=== PATIENT | female | born 1980 | race Caucasian/White ===

== ENCOUNTER 2020-04-04 15:33 | Outpatient (CLI) | payer BC, SELFPAY ==
--- NOTE | ~2020-04-04 | CT_ITS ---
EXAMINATION: CT abdomen pelvis wo/w con DATE: 04/04/2020 17:20 INDICATION: Hematuria TECHNIQUE: Computed tomography (CT) of the abdomen and pelvis was performed without intravenous contr ast. CT of the abdomen and pelvis was then performed with a total of 130 mL Omnipaque 350 intravenous contrast using a double-bolus technique for simultaneous opacification of the renal parenchyma and r enal collecting system. The dose-length product (DLP) was 463.14 mGy-cm. Automated exposure control a nd iterative reconstruction technique were employed. COMPARISON: 04/10/2010 FINDINGS: The lung bases are clear. The heart size is normal. There is a 1.5 cm lesion in the right h epatic lobe with interrupted peripheral nodular enhancement, consistent with a hemangioma. A second 0 .6 cm lesion with similar features is seen in the liver dome. The spleen, pancreas, gallbladder, and adrenal glands are normal. There are at least seven nonobstructing stones in the left kidney, the lar gest of which measures 4 mm in the lower pole. There is a 5 mm nonobstructing stone of the right kidn ey lower pole. No stones are present in the ureters or bladder. There is no hydronephrosis or hydrour eter. No suspicious renal or urothelial lesion is identified. No pathologically enlarged abdominal or pelvic lymph nodes are identified. There is no free intraperitoneal gas or evidence of bowel obstruc tion. IMPRESSION: 1. Nonobstructing bilateral nephrolithiasis. Reviewed, dictated and finalized at location A. TESTER
== END 2020-04-04 15:34 | disposition home or self-care (01) ==
PROVIDERS: PCP Internal Medicine; Visit Provider Urology
DX: R31.0 Gross hematuria (principal); N20.0 Calculus of kidney
CPT/HCPCS: 74178; Q9967

== ENCOUNTER 2021-12-28 11:39 | Outpatient (CLI) | payer BC, SELFPAY ==
--- NOTE | ~2021-12-28 | MMUS_ITS ---
EXAMINATION: MM diagnostic yonny BI w arturo, US breast LT limited HISTORY: Palpable chest lump. TECHNIQUE: Additional 3-D tomosynthesis images of the breasts were performed and synthetic 2-D images were generated. CAD analysis was submitted and interpreted. High resolution Limited left breast ultr asound was performed. COMPARISON: 12/28/2021 BREAST PARENCHYMAL COMPOSITION: The breasts are extremely dense, which lowers the sensitivity of mamm ography. FINDINGS: MAMMOGRAPHIC FINDINGS: There are no suspicious masses, calcifications or architectural distortion in either breast to sugges t malignancy. ULTRASOUND: Limited left breast ultrasound: Normal heterogeneous echotexture in the left breast without evidence for mass. There are normal left axillary lymph nodes. IMPRESSION: 1. No evidence for malignancy in either breast. 2. Routine yearly screening mammogram and regular clinical breast examination are recommended. BI-RADS Category 1: Negative Reviewed, dictated and finalized at location A. IMPRESSION: 1. No evidence for malignancy in either breast. 2. Routine yearly screening mammogram and regular clinical breast examination a re recommended. BI-RADS Category 1: Negative
== END 2021-12-28 11:40 | disposition home or self-care (01) ==
LOC: ANHIMG 11:40
PROVIDERS: PCP Physician Assistant Medical; Visit Provider Physician Assistant Medical
DX: N63.20 Unspecified lump in the left breast, unspecified quadrant (principal); R92.2 Inconclusive mammogram
CPT/HCPCS: 76642; 77062; 77066; G0279

== ENCOUNTER 2023-07-18 10:29 | Outpatient (CLI) | payer BC, SELFPAY ==
--- NOTE | ~2023-07-18 | MM_ITS ---
EXAMINATION: MM screening yonny BI w arturo HISTORY: Screening mammogram TECHNIQUE: Craniocaudal and mediolateral oblique 3-D tomosynthesis images were obtained and synthetic 2-D images were generated. CAD analysis was submitted and interpreted. COMPARISON: 12/28/2021 diagnostic bilateral mammogram and limited left breast ultrasound examination BREAST PARENCHYMAL COMPOSITION: The breasts are extremely dense, which lowers the sensitivity of mamm ography. FINDINGS: There is no evidence of suspicious mass, calcification, or architectural distortion to sugg est malignancy in either breast. There has been no suspicious interval change. IMPRESSION: 1. No mammographic evidence of malignancy. 2. Recommend routine screening mammography in one year. BI-RADS Category 1: Negative Reviewed, dictated and finalized at location B.
== END 2023-07-18 10:30 ==
PROVIDERS: PCP Nurse Practitioner Obstetrics & Gynecology; Visit Provider Physician Assistant Medical
DX: Z12.31 Encounter for screening mammogram for malignant neoplasm of breast (principal)
CPT/HCPCS: 77063; 77067

== ENCOUNTER 2024-07-16 01:33 | Day surgery (SDC) | payer BC, SELFPAY ==
[2024-07-02 13:57] VITALS: BMI 18.3
--- OUTSIDE RECORDS SUMMARY | 2024-07-16 01:36 | XMS_ITS | Referral Summary ---
Author Organization [address] Address [address] [place] [id number] Care Team Providers Care Transportation Dispatcher Name Role Phone Yoselyn Hernandez Primary Care Provider [phone] Allergies Active Allergy Reactions Criticality Noted Date Comments Ciprofloxacin Muscle pain Medium 03/30/2023 Tendon pain Pseudoephedrine Other (See comments) Low 02/23/2017 Medications Ubrelvy 100 mg tablet TAKE 1 TABLET BY MOUTH AND REPEAT AGAIN NEEDED WITHIN 1-2 HOURS 02/14/2023 Active Active Problems No known active problems Social History Tobacco Use Types Packs/Day Years Used Date Smoking Tobacco: Never Comments Unknown Sex and Gender Information Value Date Recorded Sex Assigned at Not on file Legal Sex Female 3:07 PM COPY CENTER OPERATOR Gender Identity Not on file Sexual Orientation Not on file Last Filed Vital Signs Vital Sign Reading Time Taken Comments Blood Pressure 110/62 03/30/2023 7:35 PM COPY CENTER OPERATOR Pulse 63 03/30/2023 7:35 PM COPY CENTER OPERATOR Temperature 36.7 C (98 F) 03/30/2023 7:35 PM COPY CENTER OPERATOR Respiratory Rate 16 03/30/2023 7:35 PM COPY CENTER OPERATOR Oxygen Saturation 99% 03/30/2023 7:35 PM COPY CENTER OPERATOR Inhaled Oxygen Concentration - - Weight 45.4 kg (100 lb) 03/30/2023 7:35 PM COPY CENTER OPERATOR Height 157.5 cm (5' 2 ) 04/20/2017 1:35 PM COPY CENTER OPERATOR Body Mass Index 18.29 04/20/2017 1:35 PM COPY CENTER OPERATOR Plan of Treatment Not on file Insurance [employer] O[employer] Care Teams Transportation Dispatcher Relationship Specialty Start Date End Date Yoselyn Hernandez PA [facility] [place] [address] PCP - General 03/09/17
--- OUTSIDE RECORDS SUMMARY | 2024-07-16 01:37 | XMS_ITS | Clinical Summary ---
Author Organization [facility] Address [address] [place] [id number] Care Team Providers Care Concrete Pump Operator Name Role Phone Unavailable Primary Care Provider Unavailabl e Social History Tobacco Use Types Packs/Day Years Used Date Smoking Tobacco: Never Assessed Comments Unknown Sex and Gender Information Value Date Recorded Sex Assigned at Not on file Legal Sex Female 7:25 PM CDT Gender Identity Not on file Sexual Orientation Not on file Plan of Treatment Health Maintenance Due Date Last Done Comments Cervical Cancer Screening Pa p Smear (Age 30 to 64) Every 3 Years 1980 Annual Physical 1983 Hepatitis C 1998 DTaP, Tdap and Td Vaccines ( 1 - Tdap) 1999 Hepatitis B Vaccines (1 of 3 - 19+ 3-dose series) 1999 Cervical Cancer Screening Pa p with HPV Testing (Age 30 to 64) Every 5 Years 2010 Cervical Cancer Screening with HPV 2010 Mammogram Screening 2020 COVID-19 Vaccine (2023-2 5 season) 2023 HPV Vaccines Aged Out No longer eligi ble based on patient's age to complete this topic Meningococcal B Vaccine Aged Out No l onger eligible based on patient's age to complete this topic Meningococcal Vaccine Aged Out No vera conor eligible based on patient's age to complete this topic Pneumococcal Vaccine: Pediat rics (0 to 5 Years) and At-Risk Patients (6 to 49 Years) Aged Out No longer eligible b ased on patient's age to complete this topic RSV Immunizations Under 20 Months Aged Out No longer eligible based on patient's age to complete this topic
--- OUTSIDE RECORDS SUMMARY | 2024-07-16 01:37 | XMS_ITS | Clinical Summary ---
Author Organization [address] Address [address] [place] [id number] Care Team Providers Care Thermometer Maker Name Role Phone Yoselyn Hernandez Primary Care Provider [phone] Allergies Active Allergy Reactions Criticality Noted Date Comments Ciprofloxacin Muscle pain Medium 03/30/2023 Tendon pain Pseudoephedrine Other (See comments) Low 02/23/2017 Medications Ubrelvy 100 mg tablet TAKE 1 TABLET BY MOUTH AND REPEAT AGAIN NEEDED WITHIN 1-2 HOURS 02/14/2023 Active Active Problems No known active problems Family History Medical History Relation Name Comments Cancer Mother Family history of malignant neoplasm - (Added by TW Conv) Relation Name Status Comments Mother Social History Tobacco Use Types Packs/Day Years Used Date Smoking Tobacco: Never Comments Unknown Sex and Gender Information Value Date Recorded Sex Assigned at Not on file Legal Sex Female 3:07 PM POSTAL SUPERINTENDENT Gender Identity Not on file Sexual Orientation Not on file Obstetrics History Last Filed Vital Signs Vital Sign Reading Time Taken Comments Blood Pressure 110/62 03/30/2023 7:35 PM POSTAL SUPERINTENDENT Pulse 63 03/30/2023 7:35 PM POSTAL SUPERINTENDENT Temperature 36.7 C (98 F) 03/30/2023 7:35 PM POSTAL SUPERINTENDENT Respiratory Rate 16 03/30/2023 7:35 PM POSTAL SUPERINTENDENT Oxygen Saturation 99% 03/30/2023 7:35 PM POSTAL SUPERINTENDENT Inhaled Oxygen Concentration - - Weight 45.4 kg (100 lb) 03/30/2023 7:35 PM POSTAL SUPERINTENDENT Height 157.5 cm (5' 2 ) 04/20/2017 1:35 PM POSTAL SUPERINTENDENT Body Mass Index 18.29 04/20/2017 1:35 PM POSTAL SUPERINTENDENT Plan of Treatment Health Maintenance Due Date Last Done Comments Breast Cancer Screening-Mammogram 1980 Cervical Cancer Screening 1980 Depression Screening 1980 Hepatitis C Screening 1980 Varicella Vaccines (1 of 2 - 13+ 2-dose series) 1993 Hepatitis B Screening 1998 Regular Well Visit/Exam 18-64 1998 DTaP/Tdap/Td Vaccine (2 - Td or Tdap) 10/09/2023 10/08/2013 Covid-19 Vaccine (3 season) 2023 02/19/2021, 05/20/2020 Influenza Vaccine (#1) 2023 2, 01/22/2020, 01/12/2019, Additional history exists HPV Vaccines Aged Out No longer eligi ble based on patient's age to complete this topic Pneumococcal vaccine <65 Aged Out No longer eligible based on patient's age to complete this topic Insurance [email or web address] OOS Member Subscriber Plan / Payer (Ef fective 2020-Present) Name:Park Meier Relation to Subscriber:Spouse Name:WHITETELVINA Felix Date of :1977 (Home) Address: [address] [place] [id number] Payer ID:[id number] (NAIC) Type:BC [employer] Address: [facility] [id number] [place] [id number] Care Teams Thermometer Maker Relationship Specialty Start Date End Date Yoselyn Hernandez PA [facility] [place], [place] [id number] PCP - General 03/09/17
--- OUTSIDE RECORDS SUMMARY | 2024-07-16 01:37 | XMS_ITS | Data Portability ---
Author Organization [facility] [place] Address [address] [place] [address] Care Team Providers Care Cashier Name Role Phone SIDHU, MIRNA Primary Care Provider [phone] Assessment Encounter Date Assessment Date Assessment LastModified by Organization Details LastModified Time 08/05/2020 08/05/2020 Annual gynecological exam performed. Patient will come back in a year unless there are new symptoms. Not available 08/05/2020 13:52:37 11/20/2021 11/20/2021 Annual gynecological exam performed. Patient will come back in a year unless there are new symptoms. [email or web address] Not available 11/20/2021 11:07:30 01/06/2023 01/06/2023 Annual gynecological exam performed. Patient will come back in a year unless there are new symptoms. [email or web address] Not available 01/06/2023 12:32:29 01/30/2024 01/30/2024 Annual gynecological exam performed. Patient will come back in a year unless there are new symptoms. [email or web address] Not available 01/25/2024 11:05:25 Plan of Treatment Reminders Order Date Submit Date Provider Last Modified By Organization Details Last Modified Time Details Appointments None recorded . Lab CBC w/ auto diff 2023 [facility] (Lab), [address], [place], [address], 09:30:52 CMP, serum or plasma 2023 024 [facility] (Lab), [address] [place], [address], 4 09:30:50 lipid panel, blood 2023 024 [facility] (Lab), [address], [place], [address], 4 09:30:51 TSH, serum or plasma 2023 024 [facility] (Lab), [address], [place], [address], 4 09:30:51 HbA1c (hemoglo bin A1c), blood 2023 024 [facility] (Lab), [address], [place], [address], 4 09:30:52 25-hydro xyvitami n D2 + 25-hydro xyvitami n D3, QN, serum or plasma 2023 024 [facility] (Lab), [address], [place], [address], 4 09:30:51 vitamin D, 25-hydro xy, total, serum 2022 023 [facility] (Lab), [address] [place], [address], 3 04:02:46 lipid panel, blood 2022 023 [facility] (Lab), [address], [place], [address], 3 04:02:44 CMP, serum or plasma 2022 023 [facility] (Lab), [address], [place], [address], 3 04:02:45 HbA1c (hemoglo bin A1c), blood 2022 023 [facility] (Lab), [address], [place], [address], 3 04:02:44 CBC w/ auto diff 2022 023 [facility] (Lab), [address], [place], [address], 3 04:02:43 TSH, serum or plasma 2022 023 [facility] (Lab), [address], [place], [address], 3 04:02:45 Referral pelvic floor therapy referral 2020 021 [facility], [address], [place], [address], 1 09:15:24 Procedures None recorded . Surgeries None recorded . Imaging MAMMO, screenin g, digital, bilatera l 2023 024 [facility], [address], [address], [place], [address], 5 04:01:54 MAMMO, screenin g, bilatera l [address] [facility], [address], [address], [place], [address], 4 16:16:07 MAMMO, screenin g, digital, bilatera l 2020 021 [facility], [address], [place], [address], 2 16:33:46 Medication Orders Pyridium 100 mg tablet 2020 021 [id number], [address], [place], [place], [id number], 11:11:04 Patient TargetsNo targets recorded. Patient InstructionsNo instructions recorded. Reason for Referral Pelvic Floor Therapy Referra l for Painful urinary bladder spasm Referring Physician: Jessika Herbert, PLANT ACCOUNTANT, Encounter Date: 08/05/2020 Results Created Date Observation Date Name Description Value Unit Range Abnormal Flag Note LastModifiedBy Organization Detail LastModifiedTime 01/07/2001/06/2023 CBC W/DIF F WBC 7.4 10'3/ uL 3.6-10 .2 Not Available [facility] (Lab) [address] [facility], [place], [address], 01/07/2023 04:02:42 01/07/2001/06/2023 CBC W/DIF F RBC 4.28 10'6/ uL (based on docume nted legal sex) 4.10-5 .30 Not Available [facility] (Lab) [address], [place], [address], 01/07/2023 04:02:42 01/07/2001/06/2023 CBC W/DIF F HGB 13.5 g/dL (based on docume nted legal sex) 11.9-1 5.8 Not Available [facility] (Lab) [address], [place], [address], 01/07/2023 04:02:42 01/07/2001/06/2023 CBC W/DIF F HCT 42.7 % (based on docume nted legal sex) 37.4-4 8.3 Not Available [facility] (Lab) [address], [place], [address], 01/07/2023 04:02:42 01/07/2001/06/2023 CBC W/DIF F MCV 99.8 fL 82.0-9 9.0 high Not Available [facility] (Lab) [address] , [place], [address], 01/07/2023 04:02:42 01/07/20 23 01/06/2023 CBC W/DIF F MCH 31.5 pg 27.0-3 3.0 Not Available [facility] (Lab) [address], [place], [address], 01/07/2023 04:02:42 01/07/20 23 01/06/2023 CBC W/DIF F MCHC 31.6 g/dL 32.0-3 6.0 low Not Available [facility] (Lab) [address], [place], [address], 01/07/2023 04:02:42 01/07/2001/06/2023 CBC W/DIF F RDW 12.6 % 11.0-1 5.0 Not Available [facility] (Lab) [address], [place], [address], 01/07/2023 04:02:42 01/07/2001/06/2023 CBC W/DIF F plt 288 10'3/ uL 150-45 0 Not Available [facility] (Lab) [address], [place], [address], 01/07/2023 04:02:42 01/07/20 23 01/06/2023 CBC W/DIF F MPV 10.5 fL 9.8-12 .7 Not Available [facility] (Lab) [address], [place], [address], 01/07/2023 04:02:42 01/07/2001/06/2023 CBC W/DIF F NRBC's 0.0 % 0 Not Available [facility] (Lab) [address], [place], [address], 01/07/2023 04:02:42 01/07/20 23 01/06/2023 CBC W/DIF F absolute NRBCs 0.0 10'3/ uL 0 Not Available [facility] (Lab) [address], [place], [address], 01/07/2023 04:02:42 01/07/20 23 01/06/2023 CBC W/DIF F neutrophils 59.3 % 37.0-7 2.0 Not Available [facility] (Lab) [address] [facility], [place], [address], 01/07/2023 04:02:42 01/07/2001/06/2023 CBC W/DIF F lymphocytes 31.5 % 16.0-4 8.0 Not Available [facility] (Lab) [address], [place], [address], 01/07/2023 04:02:42 01/07/2001/06/2023 CBC W/DIF F monocytes 7.2 % 4.0-14 .0 Not Available [facility] (Lab) [address], [place], [address], 01/07/2023 04:02:42 01/07/2001/06/2023 CBC W/DIF F eosinophils 1.2 % 0.0-9. 0 Not Available [facility] (Lab) [address], [place], [address], 01/07/2023 04:02:42 01/07/20 23 01/06/2023 CBC W/DIF F basophils 0.7 % 0.0-2. 0 Not Available [facility] (Lab) [address], [place], [address], 01/07/2023 04:02:42 01/07/2001/06/2023 CBC W/DIF F immature granulocytes 0.1 % no define d refere nce range Not Available [facility] (Lab) [address] [place], [address], 01/07/2023 04:02:42 01/07/20 23 01/06/2023 CBC W/DIF F absolute neutrophils 4.4 10'3/ uL 1.1-6. 0 Not Available [facility] (Lab) [address] [facility], [place], [address], 01/07/2023 04:02:42 01/07/20 23 01/06/2023 CBC W/DIF F absolute lymphocytes 2.3 10'3/ uL 0.7-3. 4 Not Available [facility] (Lab) [address], [place], [address], 01/07/2023 04:02:42 01/07/20 23 01/06/2023 CBC W/DIF F absolute monocytes 0.5 10'3/ uL 0.3-1. 0 Not Available [facility] (Lab) [address], [place], [address], 01/07/2023 04:02:42 01/07/2001/06/2023 CBC W/DIF F absolute eosinophils 0.1 10'3/ uL 0.0-0. 6 Not Available [facility] (Lab) [address], [place], [address], 01/07/2023 04:02:42 01/07/2001/06/2023 CBC W/DIF F absolute basophils 0.1 10'3/ uL 0.0-0. 1 Not Available [facility] (Lab) [address], [place], [address], 01/07/2023 04:02:42 01/07/20 23 01/06/2023 CBC W/DIF F absolute immature granulocytes 0.0 10'3/ uL 0.00-0 .10 01/07 1:42 AM: P indic ates parti al resul ts on a panel have been relea sed. Addit ional resul ts will follo w. 01/07 1:42 AM: This resul t has been final verif ied. No addit ional or porras ed resul ts are expec saúl. Not Available [facility] (Lab) [address], [place], [address], 01/07/2023 04:02:42 01/07/2001/06/2023 HEMOG LOBIN A1C hemoglobin A1C 5.3 % 0-5.6 The Ameri can Diabe jenn Assoc iatio n recom mends that a prima ry goal of thera py mckenna young be a HBA1C of < 7% and that physi cians shoul d reeva luate the treat ment regim en in patie nts with HBA1C value s consi stent ly > 8%. <5.7% Gabriela l 5.7 - 6.4% Incre ased risk for diabe jenn >=6.5 % Diagn ostic of diabe jenn <7.0% Goal of thera py >8.0% Actio n sugge sted Not Available [facility] (Lab) [address], [place], [address], 01/07/2023 04:02:44 01/07/2001/06/2023 LIPID PANEL ,AMA (LDL- CALC) total cholesterol 192 mg/dL 0-199 Not Available [facility] (Lab) [address] [place], [address], 01/07/2023 04:02:44 01/07/2001/06/2023 LIPID PANEL ,AMA (LDL- CALC) triglyceride s 101 mg/dL 0.00-1 50.00 NCEP Refer ence Value s for Trigl yceri kita: Gabriela l: <150 mg/dL Borde rline High: 150 - 199 mg/dL High: 200 - 499 mg/dL Very High: >/= 500 mg/dL Not Available [facility] (Lab) [address], [place], [address], 01/07/2023 04:02:44 01/07/2001/06/2023 LIPID PANEL ,AMA (LDL- CALC) HDL cholesterol 65 mg/dL >40 Not Available [facility] (Lab) [address] [place], [address], 01/07/2023 04:02:44 01/07/20 23 01/06/2023 LIPID PANEL ,AMA (LDL- CALC) LDL cholesterol 108 mg/dL 0-99 high Cutof f value s recom richard d by the Natio nal Malu stero l Educa tion Progr am: SAMY ABLE: Malu stero l <200 mg/dL LDL <100 mg/dL BORDE RLINE : Malu stero l 200-2 39 mg/dL LDL 101-1 59 mg/dL HIGHE R RISK: Malu stero l >240 mg/dL LDL >160 mg/dL , HDL <40 mg/dL Not Available [facility] (Lab) [address], [place], [address], 01/07/2023 04:02:44 01/07/2001/06/2023 LIPID PANEL ,AMA (LDL- CALC) non-HDL cholesterol 127 mg/dL no refere nce range A reaso nable goal for non-H DL malu stero l is one that is 30 mg/dL highe r than the LDL malu stero l goal. Not Available [facility] (Lab) [address], [place], [address], 01/07/2023 04:02:44 01/07/2001/06/2023 LIPID PANEL ,AMA (LDL- CALC) chol/HDL ratio 3.0 . 0.0-5. 0 On July 06, 2022, [facility] [place] labor atori geo porras ed the equat ion for calcu latin g estim ated low-d ensit y lipop rotei n-cho leste rol (LDL- C) from the Dany glez equat ion to the Vesta wilde/Debi mitchell equat ion. This new equat ion is only valid for lipid panel s with trigl yceri kita < 400 mg/dL . Studi es have demon strat ed that this new equat ion will impro ve the accur acy of LDL-C , espec ially in scena dubon when LDL-C ronda ntrat ions are relat ively low (< 100 mg/dL ), trigl yceri kita are eleva saúl, or patie nt is non-f astin g. Refer ences : - Oleg Sin, Howard Angel , Dhiraj bee, Marito Solano, Marito haynes, Mirna ellis , and Rey Tucker . 2013. Comp ariso n of a Novel Metho d vs the Fried newton Equat ion for Estim ating Low-D ensit y Lipop rotei n Malu stero l Level s from the Stand asad Lipid Profevin samaniego. THOMAS: The Journ al of the Ameri can Medic al Assoc iatio n 310 (19): 2060- . - Emani lee V, Cynthia J, Fátima lee A, Laura M, Kenneth espinoza R, Ward lee E, Kimberley ellis RS, Garrett SR, Vesta wilde SS. Fast ing Versu s Nonfa sting and Low-D ensit y Lipop rotei n Malu stero l Accur acy. Circu latio n. 2017Mar 15;137 (1):1 0-19. Not Available [facility] (Lab) [address] [place], [address], 01/07/2023 04:02:44 01/07/20 23 01/06/2023 CMP(C OMPRE HENSI VE METAB OLIC PANEL ) sodium 136 mmol/ L 133-14 6 Not Available [facility] (Lab) [address] [place], [address], 01/07/2023 04:02:45 01/07/20 23 01/06/2023 CMP(C OMPRE HENSI VE METAB OLIC PANEL ) potassium 3.8 mmol/ L 3.5-5. 1 Not Available [facility] (Lab) [address] [place], [address], 01/07/2023 04:02:45 01/07/20 23 01/06/2023 CMP(C OMPRE HENSI VE METAB OLIC PANEL ) chloride 101 mmol/ L 98-107 Not Available [facility] (Lab) [address] [place], [address], 01/07/2023 04:02:45 01/07/20 23 01/06/2023 CMP(C OMPRE HENSI VE METAB OLIC PANEL ) carbon dioxide 28 mmol/ L 21-31 Not Available [facility] (Lab) [address], [place], [address], 01/07/2023 04:02:45 01/07/20 23 01/06/2023 CMP(C OMPRE HENSI VE METAB OLIC PANEL ) anion gap 7 mmol/ L 4-13 Not Available [facility] (Lab) [address], [place], [address], 01/07/2023 04:02:45 01/07/20 23 01/06/2023 CMP(C OMPRE HENSI VE METAB OLIC PANEL ) blood urea nitrogen 16 mg/dL 7-25 Not Available [facility] (Lab) [address], [place], [address], 01/07/2023 04:02:45 01/07/2001/06/2023 CMP(C OMPRE HENSI VE METAB OLIC PANEL ) creatinine 0.87 mg/dL 0.60-1 .30 Not Available [facility] (Lab) [address], [place], [address], 01/07/2023 04:02:45 01/07/20 23 01/06/2023 CMP(C OMPRE HENSI VE METAB OLIC PANEL ) egfrcr (CKD-epi 2020) 85 mL/mi n/1.7 3_m2 >=60 Not Available [facility] (Lab) [address], [place], [address], 01/07/2023 04:02:45 01/07/20 23 01/06/2023 CMP(C OMPRE HENSI VE METAB OLIC PANEL ) calcium 9.3 mg/dL 8.3-10 .5 Not Available [facility] (Lab) [address], [place], [address], 01/07/2023 04:02:45 01/07/20 23 01/06/2023 CMP(C OMPRE HENSI VE METAB OLIC PANEL ) glucose 75 mg/dL 70-100 Not Available [facility] (Lab) [address], [place], [address], 01/07/2023 04:02:45 01/07/2001/06/2023 CMP(C OMPRE HENSI VE METAB OLIC PANEL ) protein, total 7.1 g/dL 6.4-8. 3 Not Available [facility] (Lab) [address], [place], [address], 01/07/2023 04:02:45 01/07/2001/06/2023 CMP(C OMPRE HENSI VE METAB OLIC PANEL ) albumin 4.3 g/dL 3.5-5. 0 Not Available [facility] (Lab) [address], [place], [address], 01/07/2023 04:02:45 01/07/2001/06/2023 CMP(C OMPRE HENSI VE METAB OLIC PANEL ) ALT 7 units /L 9-43 low Not Available [facility] (Lab) [address], [place], [address], 01/07/2023 04:02:45 01/07/2001/06/2023 CMP(C OMPRE HENSI VE METAB OLIC PANEL ) alkaline phosphatase 31 units /L 34-104 low Not Available [facility] (Lab) [address], [place], [address], 01/07/2023 04:02:45 01/07/2001/06/2023 CMP(C OMPRE HENSI VE METAB OLIC PANEL ) AST 13 units /L 13-39 Not Available [facility] (Lab) [address], [place], [address], 01/07/2023 04:02:45 01/07/2001/06/2023 CMP(C OMPRE HENSI VE METAB OLIC PANEL ) bilirubin, total 1.1 mg/dL 0.2-1. 2 Not Available [facility] (Lab) [address], [place], [address], 01/07/2023 04:02:45 01/07/20 23 01/06/2023 TSH, REFLE X FREE T4 TSH 1.47 uIU/m L 0.30-5 .33 Not Available [facility] (Lab) [address], [place], [address], 01/07/2023 04:02:45 01/07/20 23 01/06/2023 VITAM IN D, 25-OH (TOTA L D2/D3 ) vitamin D, 25-hydroxy, total 24.7 NG/mL 30.0-1 00.0 low Sug[address]ive of Defic iency : <20 ng/mL Sugge stive of Insuf ficie ncy: 20-29 ng/mL Sugge stive of Suffi cienc y: 30-10 0 ng/mL Sugge stive of Toxic ity: >150 ng/mL Not Available [facility] (Lab) [address], [place], [address], 01/07/2023 04:02:46 01/07/20 23 01/06/2023 IMAGE GUIDE D PAP AND HPV REGAR DLESS image guided Pap, HPV regardless of Pap result SEE RESULT S BELOW CASE REPOR T: Cytol ogy Gynec ologi pao Repor t Case: [id number] Autho jazmin g Provi marc: Cruz Olmedo Colle cted: 01/06 1535 FILLER PICKER Order ing Locat ion: [place] [facility] Recei viktor: 01/07 0322 First Scree n: Rupinder Tucker, CT Rescr een: Nicole Randall , CT Speci men: Scree tracee Pap - Image d, Cervi x STATE MENT OF ADEQU ACY: Satis facto ry for evalu ation Trans forma tion zone compo nent prese nt FINAL DIAGN OSIS: Negat lashay for Intra epith elial Lesio n or Adrián bolton (NIL) . Elect meliza estes michelle d by Nicole Randall , CT on 01/11 at 5:03 PM ----- ----- ----- ----- ----- ----- ----- ----- ----- ----- ----- ----- ----- ----- ----- ----- ----- ---- HPV RESUL TS: HPV mRNA E6/E7 : No HPV mRNA Detec saúl NOTE: This high risk HPV mRNA assay detec ts fourt een high- risk HPV types (16, 18, 31, 33, 35, 39, 45, 51, 52, 56, 58, 59, 66, 68) witho ut diffe renti ation . COMME NT: This speci men was revie wed by a Cytot echno logis t and/o r Patho logis t (as indic ated in this repor t) after evalu ation using the Thinp rep Imagi ng Syste m. CLINI PAO INFOR MATIO N: Menst rual Statu s: LMP (if appli cable ): Clini pao Histo ry/Pr eviou s Pap: Type of Neopl eva (if appli cable ): Signi fican t Clini pao Findi ngs: Other Histo ry: Hormo pamela (if appli cable ): PAP EDUCA ZEYNEP L NOTE: The Pap Test is a scree tracee test with an inher ent false negat lashay rate. Liqui d-bas ed sampl ing may decre ase, but will not elimi adilene, false negat lashay resul ts. A negat lashay resul t does not precl ude the prese nce and/o r devel opmen t of disea se, since the prese nce of abnor mal cells in the sampl e depen ds on the locat ion of the lesio n and sampl ing techn ique. Monisha nued regul ar scree tracee is the best metho d of cance r preve ntion . If repor saúl cytol ogic findi ng do not corre late with physi pao and/o r histo rical findi ngs, fur er inves tigat ion is recom richard d, as clini francisco warra nted. Not Available [facility] (Lab) [address], [place], [address], 01/11/2023 18:07:07 03/25/19 24 03/25/2023 VITAM IN D, 25-OH (TOTA L D2/D3 ) vitamin D, 25-hydroxy, total 58.3 NG/mL 30.0-1 00.[address] of Defic iency : <20 ng/mL Sugge stive of Insuf ficie ncy: 20-29 ng/mL Sugge stive of Suffi cienc y: 30-10 0 ng/mL Sugge stive of Toxic ity: >150 ng/mL Not Available [facility] (Lab) [address], [place], [address], 03/26/2023 07:03:47 07/15/19 24 07/15/2023 VITAM IN D, 25-OH (TOTA L D2/D3 ) vitamin D, 25-hydroxy, total 37.7 NG/mL 30.0-1 00.[address] of Defic iency : <20 ng/mL Sugge stive of Insuf ficie ncy: 20-29 ng/mL Sugge stive of Suffi cienc y: 30-10 0 ng/mL Sugge stive of Toxic ity: >150 ng/mL Not Available [facility] (Lab) [address], [place], [address], 07/16/2023 14:32:18 01/30/20 24 01/30/2024 CMP(C OMPRE HENSI VE METAB OLIC PANEL ) sodium 137 mmol/ L 133-14 6 Not Available [facility] (Lab) [address] [place], [address], 01/31/2024 09:30:50 01/30/20 24 01/30/2024 CMP(C OMPRE HENSI VE METAB OLIC PANEL ) potassium 4.4 mmol/ L 3.5-5. 1 Not Available [facility] (Lab) [address] [place], [address], 01/31/2024 09:30:50 01/30/20 24 01/30/2024 CMP(C OMPRE HENSI VE METAB OLIC PANEL ) chloride 100 mmol/ L 98-107 Not Available [facility] (Lab) [address], [place], [address], 01/31/2024 09:30:50 01/30/20 24 01/30/2024 CMP(C OMPRE HENSI VE METAB OLIC PANEL ) carbon dioxide 31 mmol/ L 21-31 Not Available [facility] (Lab) [address], [place], [address], 01/31/2024 09:30:50 01/30/20 24 01/30/2024 CMP(C OMPRE HENSI VE METAB OLIC PANEL ) anion gap 6 mmol/ L 4-13 Not Available [facility] (Lab) [address], [place], [address], 01/31/2024 09:30:50 01/30/20 24 01/30/2024 CMP(C OMPRE HENSI VE METAB OLIC PANEL ) blood urea nitrogen 11 mg/dL 7-25 Not Available [facility] (Lab) [address], [place], [address], 01/31/2024 09:30:50 01/30/20 24 01/30/2024 CMP(C OMPRE HENSI VE METAB OLIC PANEL ) creatinine 0.74 mg/dL 0.60-1 .30 Not Available [facility] (Lab) [address], [place], [address], 01/31/2024 09:30:50 01/30/20 24 01/30/2024 CMP(C OMPRE HENSI VE METAB OLIC PANEL ) egfrcr (CKD-epi 2020) >90 mL/mi n/1.7 3_m2 >=60 Not Available [facility] (Lab) [address], [place], [address], 01/31/2024 09:30:50 01/30/20 24 01/30/2024 CMP(C OMPRE HENSI VE METAB OLIC PANEL ) calcium 9.5 mg/dL 8.3-10 .5 Not Available [facility] (Lab) [address] [facility] [facility], [place], [address], 01/31/2024 09:30:50 01/30/20 24 01/30/2024 CMP(C OMPRE HENSI VE METAB OLIC PANEL ) glucose 83 mg/dL 70-100 Not Available [facility] (Lab) [address], [place], [address], 01/31/2024 09:30:50 01/30/20 24 01/30/2024 CMP(C OMPRE HENSI VE METAB OLIC PANEL ) protein, total 6.9 g/dL 6.4-8. 3 Not Available [facility] (Lab) [address], [place], [address], 01/31/2024 09:30:50 01/30/20 24 01/30/2024 CMP(C OMPRE HENSI VE METAB OLIC PANEL ) albumin 4.4 g/dL 3.5-5. 0 Not Available [facility] (Lab) [address], [place], [address], 01/31/2024 09:30:50 01/30/20 24 01/30/2024 CMP(C OMPRE HENSI VE METAB OLIC PANEL ) ALT 10 units /L 9-43 Not Available [facility] (Lab) [address] [facility] [address], [place], [address], 01/31/2024 09:30:50 01/30/20 24 01/30/2024 CMP(C OMPRE HENSI VE METAB OLIC PANEL ) alkaline phosphatase 36 units /L 34-104 Not Available [facility] (Lab) [address] [facility] [facility], [place], [address], 01/31/2024 09:30:50 01/30/20 24 01/30/2024 CMP(C OMPRE HENSI VE METAB OLIC PANEL ) AST 15 units /L 13-39 Not Available [facility] (Lab) [address] [place], [address], 01/31/2024 09:30:50 01/30/20 24 01/30/2024 CMP(C OMPRE HENSI VE METAB OLIC PANEL ) bilirubin, total 0.9 mg/dL 0.2-1. 2 Not Available [facility] (Lab) [address] [place], [address], 01/31/2024 09:30:50 01/30/20 24 01/30/2024 LIPID PANEL ,AMA (LDL- CALC) total cholesterol 195 mg/dL 0-199 Not Available [facility] (Lab) [address] [place], [address], 01/31/2024 09:30:51 01/30/20 24 01/30/2024 LIPID PANEL ,AMA (LDL- CALC) triglyceride s 129 mg/dL 0-150 NCEP Refer ence Value s for Trigl yceri kita: Gabriela l: <150 mg/dL Borde rline High: 150 - 199 mg/dL High: 200 - 499 mg/dL Very High: >/= 500 mg/dL Not Available [facility] (Lab) [address] [place], [address], 01/31/2024 09:30:51 01/30/20 24 01/30/2024 LIPID PANEL ,AMA (LDL- CALC) HDL cholesterol 66 mg/dL >40 Not Available [facility] (Lab) [address] [place], [address], 01/31/2024 09:30:51 01/30/20 24 01/30/2024 LIPID PANEL ,AMA (LDL- CALC) LDL cholesterol 106 mg/dL 0-99 high Cutof f value s recom richard d by the Natio n[facility] t[facility] Progr am: SAMY ABLE: Malu stero l <200 mg/dL LDL <100 mg/dL BORDE RLINE : Malu stero l 200-2 39 mg/dL LDL 101-1 59 mg/dL HIGHE R RISK: Malu stero l >240 mg/dL LDL >160 mg/dL , HDL <40 mg/dL Not Available [facility] (Lab) [address] [facility], [place], [address], 01/31/2024 09:30:51 01/30/20 24 01/30/2024 LIPID PANEL ,AMA (LDL- CALC) non-HDL cholesterol 129 mg/dL no refere nce range A reaso nable goal for non-H DL malu stero l is one that is 30 mg/dL highe r than the LDL malu stero l goal. Not Available [facility] (Lab) [address] [facility], [place], [address], 01/31/2024 09:30:51 01/30/20 24 01/30/2024 LIPID PANEL ,AMA (LDL- CALC) chol/HDL ratio 3.0 . 0.0-5. 0 On July 06, 2022, [facility] [place] labor atori es porras ed the equat ion for calcu latin g estim ated low-d ensit y lipop rotei n-cho leste rol (LDL- C) from the [employer] equat ion to the Vesta chani/Debi mitchell equat ion. This new equat ion is only valid for lipid panel s with trigl yceri kita < 400 mg/dL . Studi es have demon strat ed that this new equat ion will impro ve the accur acy of LDL-C , espec ially in scena [place] when LDL-C ronda ntrat ions are relat ively low (< 100 mg/dL ), trigl yceri kita are eleva saúl, or patie nt is non-f astin g. Refer ences : - Oleg Sin, Howard Angel , Dhiraj bee, Marito Solano, Marito haynes, [facility] , and Rey Tucker . 2013. Comp ariso n of a Novel Metho d vs the Fried newton Equat ion for Estim ating Low-D ensit y Lipop rotei n Malu stero l Level s from the Stand asad Lipid Shanti samaniego. THOMAS: The Journ al of the Ameri can Medic al Assoc iatio n 310 19): 2060- . - Emani lee V, Cynthia J, Fátima ar A, Laura M, Kenneth e R, Ward lee E, Kimberley ellis RS, Garrett SR, Vesta n SS. Fast ing Versu s Nonfa sting and Low-D ensit y Lipop rotei n Malu stero l Accur acy. Circu latio n. 2017Mar 15;137 (1):1 0-19. Not Available [facility] (Lab) [address] , [place], [address], 01/31/2024 09:30:51 01/30/20 24 01/30/2024 TSH, REFLE X FREE T4 TSH 1.17 uIU/m L 0.30-5 .33 Not Available [facility] (Lab) [address], [place], [address], 01/31/2024 09:30:51 01/30/20 24 01/30/2024 VITAM IN D, 25-OH (TOTA L D2/D3 ) vitamin D, 25-hydroxy, total 49.5 NG/mL 30.0-1 00.0 Sugge stive of Defic iency : <20 ng/mL Sugge stive of Insuf ficie ncy: 20-29 ng/mL Sugge stive of Suffi cienc y: 30-10 0 ng/mL Sugge stive of Toxic ity: >150 ng/mL Not Available [facility] (Lab) [address], [place], [address], 01/31/2024 09:30:51 01/30/20 24 01/30/2024 CBC W/DIF F WBC 5.2 10'3/ uL 3.5-10 .5 Not Available [facility] (Lab) [address], [place], [address], 01/31/2024 09:30:52 01/30/20 24 01/30/2024 CBC W/DIF F RBC 4.31 10'6/ uL (based on docume nted legal sex) 3.80-5 .20 Not Available [facility] (Lab) [address], [place], [address], 01/31/2024 09:30:52 01/30/20 24 01/30/2024 CBC W/DIF F HGB 13.6 g/dL (based on docume nted legal sex) 11.6-1 5.4 Not Available [facility] (Lab) [address], [place], [address], 01/31/2024 09:30:52 01/30/20 24 01/30/2024 CBC W/DIF F HCT 43.1 % (based on docume nted legal sex) 34.0-4 5.0 Not Available [facility] (Lab) [address], [place], [address], 01/31/2024 09:30:52 01/30/20 24 01/30/2024 CBC W/DIF F MCV 100.0 fL 80.0-9 9.0 high Not Available [facility] (Lab) [address] , [place], [address], 01/31/2024 09:30:52 01/30/20 24 01/30/2024 CBC W/DIF F MCH 31.6 pg 27.0-3 4.0 Not Available [facility] (Lab) [address], [place], [address], 01/31/2024 09:30:52 01/30/20 24 01/30/2024 CBC W/DIF F MCHC 31.6 g/dL 32.0-3 5.5 low Not Available [facility] (Lab) [address], [place], [address], 01/31/2024 09:30:52 01/30/20 24 01/30/2024 CBC W/DIF F RDW 12.4 % 11.0-1 5.0 Not Available [facility] (Lab) [address], [place], [address], 01/31/2024 09:30:52 01/30/20 24 01/30/2024 CBC W/DIF F plt 320 10'3/ uL 150-40 0 Not Available [facility] (Lab) [address], [place], [address], 01/31/2024 09:30:52 01/30/20 24 01/30/2024 CBC W/DIF F MPV 10.3 fL 8.8-12 .1 Not Available [facility] (Lab) [address], [place], [address], 01/31/2024 09:30:52 01/30/20 24 01/30/2024 CBC W/DIF F NRBC's 0.0 % 0.0 Not Available [facility] (Lab) [address], [place], [address], 01/31/2024 09:30:52 01/30/20 24 01/30/2024 CBC W/DIF F absolute NRBCs 0.0 10'3/ uL no refere nce range establ ished Not Available [facility] (Lab) [address], [place], [address], 01/31/2024 09:30:52 01/30/20 24 01/30/2024 CBC W/DIF F neutrophils 55.6 % 34.0-7 3.0 Not Available [facility] (Lab) [address], [place], [address], 01/31/2024 09:30:52 01/30/20 24 01/30/2024 CBC W/DIF F lymphocytes 32.8 % 15.0-5 0.0 Not Available [facility] (Lab) [address], [place], [address], 01/31/2024 09:30:52 01/30/20 24 01/30/2024 CBC W/DIF F monocytes 8.7 % 1.0-15 .0 Not Available [facility] (Lab) [address] [place], [address], 01/31/2024 09:30:52 01/30/20 24 01/30/2024 CBC W/DIF F eosinophils 1.9 % 0.0-8. 0 Not Available [facility] (Lab) [address], [place], [address], 01/31/2024 09:30:52 01/30/20 24 01/30/2024 CBC W/DIF F basophils 0.8 % 0.0-2. 0 Not Available [facility] (Lab) [address] [facility], [place], [address], 01/31/2024 09:30:52 01/30/20 24 01/30/2024 CBC W/DIF F immature granulocytes 0.2 % no define d refere nce range Not Available [facility] (Lab) [address] [facility], [place], [address], 01/31/2024 09:30:52 01/30/20 24 01/30/2024 CBC W/DIF F absolute neutrophils 2.9 10'3/ uL 1.5-8. 0 Not Available [facility] (Lab) [address] [place], [address], 01/31/2024 09:30:52 01/30/20 24 01/30/2024 CBC W/DIF F absolute lymphocytes 1.7 10'3/ uL 1.0-4. 0 Not Available [facility] (Lab) [address] [place], [address], 01/31/2024 09:30:52 01/30/20 24 01/30/2024 CBC W/DIF F absolute monocytes 0.5 10'3/ uL 0.2-1. 0 Not Available [facility] (Lab) [address], [place], [address], 01/31/2024 09:30:52 01/30/20 24 01/30/2024 CBC W/DIF F absolute eosinophils 0.1 10'3/ uL 0.0-0. 6 Not Available [facility] (Lab) [address] [facility], [place], [address], 01/31/2024 09:30:52 01/30/20 24 01/30/2024 CBC W/DIF F absolute basophils 0.0 10'3/ uL 0.0-0. 3 Not Available [facility] (Lab) [address] [facility], [place], [address], 01/31/2024 09:30:52 01/30/20 24 01/30/2024 CBC W/DIF F absolute immature granulocytes 0.0 10'3/ uL 0.00-0 .10 01/30 8:04 AM: P indic ates parti al resul ts on a panel have been relea sed. Addit ional resul ts will follo w. 01/30 8:04 AM: This resul t has been final verif ied. No addit ional or porras ed resul ts are expec saúl. Not Available [facility] (Lab) [address] [facility], [place], [address], 01/31/2024 09:30:52 01/30/20 24 01/30/2024 HEMOG LOBIN A1C hemoglobin A1C 5.2 % 0-5.6 The Ameri can Diabe jenn Assoc iatio n recom mends that a prima ry goal of thera py mckenna d be a HBA1C of < 7% and that physi cians shoul d reeva luate the treat ment regim en in patie nts with HBA1C value s consi stent ly > 8%. <5.7% Gabriela l 5.7 - 6.4% Incre ased risk for diabe jenn >=6.5 % Diagn ostic of diabe jenn <7.0% Goal of thera py >8.0% Actio n sugge sted Not Available [facility] (Lab) [address] , [place], [address], 01/31/2024 09:30:52 Result Notes None recorded. Problems Name Problem SNOMED Code Status Onset Date Resolution Date Notes Provider Name and Address Organization Details Recorded Time Finding of regulari ty of menstrua l cycle Completed 201608/05/2020 Irregula r menstrua tion, unspecif ied;Prac rubi ID: [address] [facility] 14:05:18 Uses combined oral contrace ption [id number] Completed 201608/05/2020 Encounte r for surveill ance of contrace ptive pills;Pr actice ID: [address] [facility] 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 14:05:51 Routine antenata l care Completed 201308/05/2020 Supervis ion of other normal pregnanc y;Practi ce ID: [address] [facility] 14:05:41 Known OR suspecte d abnormal ity affectin g manageme nt of mother Completed 201308/05/2020 Unspecif ied suspecte d abnormal ity, affectin g manageme nt of mother, unspecif ied as to episode of care;Pra ctice ID: [address] [facility] 14:05:30 Uterine scar from previous surgery in pregnanc y, childbir th and the [place] um - delivere d [id number] Completed 201308/05/2020 Previous delivery , antepart um conditio n or complica tion;Pra ctice ID: [address] [facility] 14:05:59 Single live from singleto n pregnanc y [id number] Completed 201308/05/2020 Mother with single liveborn ;Practic e ID: [address] [facility] 14:05:44 Postpart um care Completed 201308/05/2020 Postpart um follow-u p;Practi ce ID: 0001 Annalise [facility], [facility] 14:05:35 Inflamma tory disorder of breast [id number] Completed 201308/05/2020 Inflamma tory disease of breast;P ractice ID: [address] [facility] 14:05:21 Increase d frequenc y of urinatio n [id number] Completed 201308/05/2020 Urinary frequenc y;Practi ce ID: 0001 Annalise [facility], [facility] 14:05:20 Abdomina l pain [id number] Completed 201308/05/2020 Abdomina l pain, other specifie d site;Pra ctice ID: [address] [facility] 14:04:43 Pregnanc y test negative [id number] Completed 201308/05/2020 Negative Pregnanc y Test;Pra ctice ID: 0001 Annalise garcía, [facility] 14:05:37 Female genital organ symptoms [id number] Completed 201308/05/2020 Pelvic Pain;Pra ctice ID: [address] [facility] 14:05:13 IUCD status [id number] Completed 201408/05/2020 Presence of intraute rine contrace ptive device;P ractice ID: [address] [facility] 14:05:26 Adult health examinat ion Completed 201408/05/2020 Routine general medical examinat ion at a health care facility ;Practic e ID: [address] [facility] 14:04:49 Speciali zed medical examinat ion Completed 201408/05/2020 Routine gynecolo gical examinat ion;Prac rubi ID: [address] [facility] 14:05:52 Screenin g for malignan t neoplasm of cervix Completed 201408/05/2020 Pap Smear;Pr actice ID: [address] [facility] 14:05:43 Insertio n of intraute rine contrace ptive device Completed 201408/05/2020 INSERTIO N OF IUD;Prac rubi ID: [address] [facility] 14:05:23 Dyspareu alon [id number] Completed 201408/05/2020 Dyspareu alon;Prac rubi ID: [address] [facility] 14:05:07 Dysfunct ional uterine bleeding Completed 201408/05/2020 Unspecif ied disorder s of menstrua tion and other abnormal bleeding from female genital tract;Pr actice ID: [address] [facility] 14:05:03 Uses IUD (intraut erine device) contrace ption [id number] Completed 201408/05/2020 Surveill ance of intraute rine contrace ptive device;P ractice ID: [address] [facility] 14:05:27 Irregula r intermen strual bleeding [id number] Completed 201408/05/2020 Metrorrh agia;Pra ctice ID: [address] [facility] 14:05:24 Removal of intraute rine device Completed 201408/05/2020 REMOVAL OF IUD;Prac rubi ID: [address] [facility] 14:05:39 Abnormal uterine bleeding [id number] 100 Completed 201408/05/2020 Other specifie d abnormal uterine and vaginal bleeding ;Practic e ID: [address] [facility] 14:04:45 Pelvic and perineal pain 527468502 Completed 201408/05/2020 Pelvic and perineal pain;Pra ctice ID: [address] [facility] 14:05:34 Amenorrh ea [id number] Completed 201108/05/2020 AMENORRH EA;Pract ice ID: [address] [facility] 14:04:53 Pregnanc y test positive [id number] Completed 201208/05/2020 Positive Pregnanc y Test;Pra ctice ID: [address] [facility] 14:05:38 Uncertai n viabilit y of pregnanc y [id number] Completed 201208/05/2020 Viabilit y;Practi ce ID: [address] [facility] 14:05:56 Ultrason ography Completed 201308/05/2020 Antenata l screenin g for malforma tion using ultrason ics;Prac rubi ID: [address] [facility] 14:05:54 Antenata l screenin g Completed 201308/05/2020 Antenata l screenin g for malforma tion using ultrason ics;Prac rubi ID: 0001 Annalise [facility] 14:04:55 Congenit al malforma tion [id number] Completed 201308/05/2020 Antenata l screenin g for malforma tion using ultrason ics;Prac rubi ID: 0001 Annalise [facility] 14:04:51 Deliveri es by [id number] Completed 201008/05/2020 delivery , without mention of indicati on, unspecif ied as to episode of care;Rec orded Elsewher e: No Locat ion: [facility] S ource: EHR Local Operator skylar: N Practi ce ID: 0001 Brad lable Time: 10:00:[address] [facility] 14:05:[address] Concept Completed 201508/05/2020 Encntr for general adult medical exam w/o abnormal findings ;Recorde d Elsewher e: No Locat ion: [facility] S ource: EHR Local Operator skylar: N Practi ce ID: 0001 Brad lable Time: 08:45:00 AM Annalise [facility] 14:05:46 Otitis media [id number] Completed 201008/05/2020 Unspecif ied otitis media;Pr actice ID: [address] [facility] 14:05:32 anatomy study Completed 201008/05/2020 COUNTS INCLUDE [facility] BEDS AT THE [facility] ANATMC SURVEY;P ractice ID: [address] [facility] 14:05:16 Uterine size for dates discrepa ncy [id number] Completed 201008/05/2020 UTERINE SIZE KITA-ANTE PAR;Prac rubi ID: [address] [facility] 14:06:00 Urinary tract infectio us disease [id number] Completed 201008/05/2020 Urinary tract infectio n, site not specifie d;Practi ce ID: [address] [facility] 14:05:58 Dysuria [id number] Completed 201008/05/2020 Dysuria; Practice ID: [address] [facility] 14:05:09 Cyst of ovary [id number] Completed 201008/05/2020 OVARIAN CYST;Pra ctice ID: [address] [facility] 14:04:[address] Concept Completed 201908/05/2020 Encntr for routine child health exam w/o abnormal findings ;Recorde d Elsewher e: No Locat ion: [facility] S ource: EHR Local Operator skylar: N Practi ce ID: 0001 Brad lable Time: 09:45:00 AM [facility] 14:05:49 Evaluati on finding Completed 201608/05/2020 Other chromoab normalit ies of urine;Re corded Elsewher e: No Locat ion: [facility] S ource: EHR Local Operator skylar: N Practi ce ID: 0001 Brad lable Time: 01:29:52 PM [facility] 14:05:11 Problem Notes None recorded. Procedures Surgical History Date Name Laterality Status Provider Name and Address Organization Details Recorded Time 4 Date of Last Mammogram completed Thais Lara [facility] 01/30/2024 11:06:19 3 Date of Last Pap Smear completed Thais Lara [facility] 01/25/2024 11:05:19 4 section completed [facility] 08/05/2020 15:42:20 1 section completed [facility] 08/05/2020 15:42:28 8 Caesarean Section completed [facility] 08/05/2020 15:42:40 Imaging Results None recorded. Procedure Notes None recorded. Medical Equipment None Reported. Allergies Allergen ID Allergen Name Allergen Category Reaction Reaction Severity Criticality Documentation Date Start Date Code Code System Note Provider Name and Address Organization Details Recorded Time 40796 Cipro medicatio n Not available Not available Not available 08/05/2020 3 RxNorm [facility] 14:03:57 Medications Name Sig Start Date Stop Date Status Note LastModified by Organization Details LastModified Time dicloxaci llin 500 mg capsule take 1 capsule by oral route every 6 hours 1 hour before a meal or 2 hours after a meal 04/22 completed Prescrib ed Elsewher e: No Locat ion: [facility] odify By: alma rosa schaefer DateTime : 12/01/19 14 03:45:00 PM Not Available Not Available Not Available Apri 0.15 mg-0.03 mg tablet take 1 tablet by oral route every day 01/05 completed Prescrib ed Elsewher e: No Locat ion: [facility] odify By: brian donaldi Enco unter DateTime : 08/12/19 13 12:30:14 PM Not Available Not Available Not Available azithromy hannah 250 mg tablet TK DIRECTED 08/05 completed Not Available Not Available Not Available fluconazo le 150 mg tablet TAKE 1 TABLET BY MOUTH EVERY 3 DAYS 01/06 completed Not Available Not Available Not Available prednison e 20 mg tablet TK 1 T PO QAM WF 08/05 completed Not Available Not Available Not Available sulfameth oxazole 800 mg-trimet hoprim 160 mg tablet TAKE 1 TABLET BY MOUTH TWICE DAILY FOR 7 DAYS 01/29 completed Not Available Not Available Not Available Depo-Prov era 150 mg/mL intramusc ular suspensio n inject 1 millilit er by intramus cular route every 3 months 01/28 completed Prescrib ed Elsewher e: No Locat ion: [facility] odify By: edu Espinoza ncounter DateTime : 02/18/20 04:29:57 PM Not Available Not Available Not Available codeine-b utalbital -ASA-caff eine 30 mg-50 mg-325 mg-40 mg capsule TK 1 TO 2 CS PO Q 4 TO 6 H PRF DIAZ 08/05 completed Not Available Not Available Not Available meclizine 25 mg tablet TAKE 1 TABLET BY MOUTH THREE TIMES DAILY 01/06 completed Not Available Not Available Not Available phenazopy ridine 100 mg tablet TAKE 1 TABLET BY MOUTH TWICE DAILY FOR 7 DAYS 11/20 completed Not Available Not Available Not Available cephalexi n 500 mg capsule TAKE 1 CAPSULE BY MOUTH TWICE DAILY FOR 3 DAYS NEEDED FOR UTI DIRECTED 01/24 completed Not Available Not Available Not Available neomycin- polymyxin -dexameth 3.5 mg/mL-10, 000 unit/mL-0 .1% eye drops 01/29 completed Not Available Not Available Not Available Low-Ogest rel (28) 0.3 mg-30 mcg tablet take 1 tablet by oral route every day 04/27 completed Prescrib ed Elsewher e: No Locat ion: [facility] odify By: hina Espinoza ncounter DateTime : 01/29/20 09:00:00 AM Not Available Not Available Not Available ergocalci ferol (vitamin D2) 1,250 mcg (50,000 unit) capsule TAKE 1 CAPSULE BY MOUTH EVERY WEEK active Not Available Not Available No t Available Nor-Q-D 0.35 mg tablet take 1 tablet by oral route every day 01/05 completed Prescrib ed Elsewher e: No Locat ion: [facility] odify By: brian donaldi Enco unter DateTime : 04/12/19 12 10:00:00 AM Not Available Not Available Not Available cefdinir 300 mg capsule TAKE 1 CAPSULE BY MOUTH TWICE DAILY. STOP BACTRIM DS 08/05 completed Not Available Not Available Not Available Ortho Tri-Cycle n (28) 0.18 mg(7)/0.2 15mg(7)/0 .25 mg(7)-0.0 35 mg tablet take 1 tablet by oral route every day 01/05 completed Prescrib ed Elsewher e: No Locat ion: Dick espinoza [facility] odify By: jlpjames jeronimo Enco unter DateTime : 09/30/19 12 10:53:55 AM Not Available Not Available Not Available Vitamin 27 mg iron-0.8 mg tablet take 1 tablet by oral route every day 04/27 completed Prescrib ed Elsewher e: Yes Loca tion: [facility] odify By: hina tsanguntellen DateTime : 03/11/20 11 10:00:00 AM Not Available Not Available Not Available Depo-Prov era 150 mg/mL intramusc ular syringe inject 1 millilit er by intramus cular route every 3 months 01/28 completed Prescrib ed Elsewher e: No [facility] By: edu Espinoza ncounter DateTime : 09/06/19 15 08:15:00 AM Not Available Not Available Not Available cyclobenz aprine 5 mg tablet TAKE 1 TABLET BY MOUTH THREE TIMES DAILY NEEDED 01/06 completed Not Available Not Available Not Available nitrofura ntoin monohydra te/macroc rystals 100 mg capsule TAKE 1 CAPSULE BY MOUTH TWICE DAILY 08/05 completed Not Available Not Available Not Available multivita min 01/06 completed Not Available Not Available Not Available Vitamin D3 10 mcg (400 unit) capsule 08/05 completed Prescrib ed Elsewher e: Yes [facility] By: alma rosa schaefer DateTime : 04/22/19 15 01:00:00 PM Not Available Not Available Not Available Lo Loestrin Fe 1 mg-10 mcg (24)/10 mcg (2) tablet take 1 tablet by oral route every day 02/25 completed Prescrib ed Elsewher e: No Locat ion: [facility] odify By: power Espinoza ncounter DateTime : 03/28/19 16 12:58:14 PM Not Available Not Available Not Available Triveen-D uo DHA 29 mg-1 mg-400 mg oral pack take 2 by Oral route every day for 30 days 03/21 completed Prescrib ed Elsewher e: No Locat ion: [facility] odify By: francesco Espinoza ncounter DateTime : 02/21/20 13 08:45:00 AM Not Available Not Available Not Available butalbita l 50 mg-acetam inophen 300 mg-caffei ne 40 mg-codein e 30 mg cap TAKE 1 TO 2 CAPSULES BY MOUTH EVERY 4 TO 6 HOURS NEEDED FOR HEADACHE 08/05 completed Not Available Not Available Not Available Ubrelvy 100 mg tablet TAKE 1 TABLET BY MOUTH AND REPEAT AGAIN NEEDED WITHIN 1-2 HOURS active Not Available Not Available No t Available Nurtec ODT 75 mg disintegr ating tablet DISSOLVE 1 TABLET ON THE TONGUE 1 TIME NEEDED FOR MIGRAINE HEADACHE active Not Available Not Available No t Available Vitals Date Recorded Body height Body mass index (BMI) Body weight Systolic blood pressure Diastolic blood pressure Provider Name and Address Organization Details Last Updated DateTime 08/05/2020 158.75 cm 18.2 kg/m2 34388.83 g 102 mm[Hg] 67 mm[Hg] [facility] 1 14:03:22 Date Recorded Body height Body mass index (BMI) Body weight Systolic blood pressure Diastolic blood pressure Provider Name and Address Organization Details Last Updated DateTime 11/20/2021 157.48 cm 18.5 kg/m2 83996.83 g 112 mm[Hg] 76 mm[Hg] [facility] 2 11:10:55 Date Recorded Body height Body mass index (BMI) Body weight Systolic blood pressure Diastolic blood pressure Provider Name and Address Organization Details Last Updated DateTime 01/06/2023 157.48 cm 18.8 kg/m2 71096.01 g 101 mm[Hg] 65 mm[Hg] Rox Osmar [facility] 3 12:32:50 Date Recorded Body height Body mass index (BMI) Body weight Systolic blood pressure Diastolic blood pressure Provider Name and Address Organization Details Last Updated DateTime 01/30/2024 157.48 cm 18.8 kg/m2 28070.01 g 110 mm[Hg] 72 mm[Hg] Thais Lara [facility] 4 11:05:13 Social History Question Answer Notes LastModified by Organizat ion Details LastModified Time Tobacco Smoking Status Never Smoker Annalise Naman garcía, [facility] 11/20/2021 11:11:45 Do You Have An Advance Directive? No Information n ot available 08/05/2020 What Is Your Level Of Alcohol Consumption? Moderate Information not available 08/05/2020 Are You Blind Or Do You Have Difficulty Seeing? No Information n ot available 08/05/2020 What Is Your Level Of Caffeine Consumption? Moderate Information not available 08/05/2020 How Much Tobacco Do You Chew? None Information not available 08/05/2020 In The 14 Days Before Symptom Onset, Have You Had Close Contact With A Laboratory-confirm ed COVID-19 While That Case Was Ill? No Information n ot available 08/05/2020 In The 14 Days Before Symptom Onset, Have You Had Close Contact With A Person Who Is Under Investigation For COVID-19 While That Person Was Ill? No Information not available 08/05/2020 Have You Been To An Area Known To Be High Risk For COVID-19? No Information not available 08/05/2020 Are You Deaf Or Do You Have Serious Difficulty Hearing? No Information not available 08/05/2020 What Type Of Diet Are You Following? REGULAR Information n ot available 08/05/2020 What Is The Highest Grade Or Level Of School You Have Completed Or The Highest Degree You Have Received? [id number] Information not available 08/05/2020 Are There Any Guns Present In Your Home? Yes Information not available 08/05/2020 Do You Use Protection During Sex? No Information not available 08/05/2020 Do You Use Your Seat Belt Or Car Seat Routinely? Yes Information not available 08/05/2020 Do You Have Smoke And Carbon Monoxide Detectors In Your Home? Yes Information not available 08/05/2020 How Much Tobacco Do You Smoke? No Information not available 08/05/2020 Do You Feel Stressed (tense, Restless, Nervous, Or Anxious, Or Unable To Sleep At Night)? [id number] Information not available 08/05/2020 Do You Use Any Illicit Or Recreational Drugs? No Information not available 08/05/2020 Do You Use Sunscreen Routinely? Yes Information not available 08/05/2020 Have You Used IV Drugs? No Information not available 08/05/2020 Sex: Unknown Functional Status Question Answer Note LastModified by Organizat ion Details LastModified Time Do you have difficulty walking or climbing stairs? No Information not available 11/20/2021 Are you able to walk? YESWOREST Information not available 08/05/2020 Are you able to care for yourself? Yes Information not available 11/20/2021 Do you have difficulty dressing or bathing? No Information not available 11/20/2021 What is your exercise level? Moderate Information not available 08/05/2020 Mental Status None recorded. Family History Relationship Description Onset Age of this Age Resolved Age Notes LastModified by Organization Details LastModified Time Mother Depressive disorder Not available 2020 14:03:26 Maternal Grandfather Malignant tumor of colon Not available 2020 14:03:26 Sister Multiple sclerosis Not available 2020 14:03:26 Paternal Grandmother Malignant tumor of colon Not available 2020 14:03:26 Medical History Condition Response Other N Blood Transfusion N Dermatologic Disorders N Gestational Diabetes N Anxiety Disorder N Autoimmune disease N Arthritis N Polyps N Infertility N Acid Reflux (GERD) N Cancer N Varicosities N Stroke N Neurologic/Epilepsy N Fibromyalgia N Headaches N Kidney Disease N Heart Problems N Kidney or Bladder Problems N Eating Disorder N Art (IVF or FET) N Hepatitis/Liver Disease N No Past Medical History N Urinary Tract Infection N Asthma N Trauma/Violence N Thrombophilias N Allergies (Food, seasonal, environmental ) N Breast Cancer N Drug/Latex Allergies/Reactions N Lung Disease N Defects or Inherited Disease N Breast Problem N Hematologic disorders N Anesthesia Complications N History of STI N Deep Vein Thrombosis N Polycystic ovary syndrome N History of abnormal pap N Endometriosis N High Cholesterol N Thyroid Problems N GI Problems N Anemia N Psychiatric Illness N Ovarian Cancer N Diabetes N Pulmonary (TB, Asthma) N Eczema N Abuse/Domestic Violence N Depression/ depression N Heart Disease N Pre-Eclampsia N Hypertension N Osteoporosis N Gynecological History Statement/Question Response Abnormal Pap N Date of Last Mammogram 06/13/2023 Flow Light Date of LMP 01/18/2024 On BCP's at Conception? N Was last menstrual period normal Y STIs/STDs N HPV Vaccine N Colposcopy Duration of Flow (days) 6 Current Control Method Partner Vas ectomy Age at First Child 27 Are cycles usually normal Y Frequency of Cycle (Q days) 30 Sexually Active? Y Menses Monthly Y Age of first menstrual cycle 14 Date of Last Pap Smear 01/06/2023 Sexual Problems? N LMP Approximate N Obstetrics History GPAL:G 4 P 3 0 1 3 Type Value Full Term 3 Spontaneous 1 Living 3 Total 4 Past Encounters Encounter ID Performer Location Encounter Start Date Encounter Closed Date Diagnosis/Indication Diagnosis SNOMED-CT Code Diagnosis ICD10 Code Diagnosis Note [id number] Jessika Herbert , [facility] [address] [address] 08/05/2020 13:48:22 08/05/2020 14:39:58 Gynecologic examination 40066317 Z01.419 Suggested Calcium with Vitamin D 1200-1500m g daily. Patient advised to get an annual flu shot in the fall and she could obtain at [facility] or [facility] take care clinic. Also to obtain TDap vaccinatio n if you have not had one in the last 10 years. Recommend yearly mammograms . Encouraged monthly self breast exams. Encourage safe sexual practices, to use condoms and limit partners if not already in a monogamous relationsh ip. Engage in daily exercise of low impact aerobic exercise 45-60 minutes 4-5 times weekly. Avoid tobacco and illicit drugs as well as using moderation with alcohol intake less than 1-2 8 oz beverages daily. This lifestyle behavior pattern will lead to less health conditions and longer life span. If BMI greater than 25 weight watchers or dietary consult advised. All questions have been answered. Patient appears to understand informatio n, but if you have any questions please call or respond to this email. Pap/hpv hx is wnl Last pap/hpv 2020 wnl Pap/hpv q5yrs unless otherwise indicated per asccp. Decline std screening mammo ordered Painful ur inary bladder spasm [id number] N32.89 Seeing urologist this year for kidney stones that have now resolved. However, she will still have some bladder spasms at night & questions what she can do for this. Neg for urinary urgency, frequency, dysuria, incontinen ce or flank pain. We discussed trial of pyridium for a short amount of time; if this fully resolves this issue that is fine; if not we did discover some painful trigger points in pelvic floor muscles mainly levator ani groups bilaterall y and bladder pain with palpation on exam today that might need pelvic floor therapy. I have written her a referral and also requested she f/u with urologist as well. All questions answered and understand ing verbalized . Screening mammography 24 092458 Z12.31 [id number] Jessika Herbert , [facility] [address] [address] 11/20/2021 10:57:40 11/20/2021 11:51:08 Gynecologic examination [id number] Z01.419 Suggested Calcium with Vitamin D 1200-1500m g daily. Patient advised to get an annual flu shot in the fall and she could obtain at [facility] or [facility] care clinic. Also to obtain TDap vaccinatio n if you have not had one in the last 10 years. Recommend yearly mammograms . Encouraged monthly self breast exams. Encourage safe sexual practices, to use condoms and limit partners if not already in a monogamous relationsh ip. Engage in daily exercise of low impact aerobic exercise 45-60 minutes 4-5 times weekly. Avoid tobacco and illicit drugs as well as using moderation with alcohol intake less than 1-2 8 oz beverages daily. This lifestyle behavior pattern will lead to less health conditions and longer life span. If BMI greater than 25 weight watchers or dietary consult advised. All questions have been answered. Patient appears to understand informatio n, but if you have any questions please call or respond to this email. Pap/hpv due Screen declinedGe netic Screen discussedC olon Screen naDexa Screen naRoutine Labs [employer] Life insurance exam with full panel of bloodMammo ordered [id number] Jessika Herbert [facility] [address] [address] 01/06/2023 12:24:53 01/06/2023 13:54:30 Gynecologic examination [id number] Z01.419 Suggested Calcium with Vitamin D 1200-1500m g daily. Patient advised to get an annual flu shot in the fall and she could obtain at [facility] or [facility] clinic. Also to obtain TDap vaccinatio n if you have not had one in the last 10 years. Recommend yearly mammograms . Encouraged monthly self breast exams. Encourage safe sexual practices, to use condoms and limit partners if not already in a monogamous relationsh ip. Engage in daily exercise of low impact aerobic exercise 45-60 minutes 4-5 times weekly. Avoid tobacco and illicit drugs as well as using moderation with alcohol intake less than 1-2 8 oz beverages daily. This lifestyle behavior pattern will lead to less health conditions and longer life span. If BMI greater than 25 weight watchers or dietary consult advised. All questions have been answered. Patient appears to understand informatio n, but if you have any questions please call or respond to this email. Pap/hpv due Screen declinedGe netic Screen discussedC olon Screen naDexa Screen naRoutine Labs [employer] insurance exam with full panel of bloodMammo ordered Screening mammography 24 623802 Z12.31 Adult heal th examination [id number] Z00.00 Vitamin D deficiency 347 77509 E55.9 [id number] Ivan Moncada MD [facility] [address] [address] 01/30/2024 10:59:11 01/30/2024 11:29:04 Gynecologic examination [id number] Z01.419 Annual gynecologi pao exam performed. Patient will come back in a year unless there are new symptoms. Suggest Calcium with Vitamin D if not eating in diet. Patient advised to get annual flu shot. Recommend yearly physicals and perform monthly breast exams. Genetic testing is available for patients with family history of cancer. Engage in safe sexual practices, use condoms. Encouraged to have daily exercise. Avoid tobacco and illicit drugs, moderation of alcohol. If BMI greater than 25 dietary consult advised. If you have any questions please call or email. mammogram- order given, pt to schedule colon cancer screening - n/a DEXA scan- n/a Pap smear- [facility] laboratory evaluation - requested STI testing - declined Screening mammography 24 022722 Z12.31 Vitamin D deficiency 347 06715 E55.9 Will recheck vitamin D levels d/t patient history of vit. D deficiency and c/o fatigue. Health Concerns Section Related Observation LastModified by Organization Detai ls LastModified Time None Recorded Concern Status LastModified by Organization Details LastModified Time None Recorded Advance Directives Directive N: Payers Encounter Date Sequence Insurance Name Policy Number Policy Hodgson Covered Member ID Hodgson Member ID Guarantor Name 08/05/2020 1 [place] [id number] D Umer [place] [id number] [address] [place] 11/20/2021 1 [place] [id number] D Umer [place] [id number] [address] [place] 01/06/2023 1 [place] [id number] D Umer Me[place] [id number] [address] [place] 01/30/2024 1 [place]) [id number] D Umer [place] [id number] [address] [facility] Notes Date Note Type Note Provider Name and Address Organization Details Recorded Time 08/05/2020 text/html Annual GYNReport ed bypatient.Menstrua l cycle:Normal menses Urinary symptoms:No hematuria; No incontinence Vulva:No genital lesion Vagina:Normal vaginal discharge Breast:No breast pain; No breast lump; No nipple discharge Current Contraception:Sati sfied with current contraception; Monogamous relationship; Partner had vasectomy Sexual complaints:No sexual complaints; No pain during intercourse; Normal libido Menopausal Symptoms:No menopausal symptoms; Normal vaginal lubrication Psychological symptoms:No depression; No anxiety; No PMDD Preventive measures:Encourage self breast examination; Encourage regular exercise; Encourage no tobacco use; Encourage regular mammograms starting age 40; Followed with Q3 year pap smear and high risk HPV typing; Needs to schedule mammogram [facility] [address] [place], [address], [facility] 08/05/2020 14:37:22 11/20/2021 text/html Annual GYNReport ed bypatient.History: no gynecologic complaints Menstrual cycle:Normal menses Urinary symptoms:No hematuria; No incontinence Vulva:No genital lesion Vagina:Normal vaginal discharge Breast:No breast pain; No breast lump; No nipple discharge Current Contraception:Sati sfied with current contraception; Partner had vasectomy Sexual complaints:No sexual complaints; No pain during intercourse; Normal libido Menopausal Symptoms:No menopausal symptoms; Normal vaginal lubrication Psychological symptoms:No depression; No anxiety; No PMDD Preventive measures:Encourage self breast examination; Encourage regular exercise; Encourage no tobacco use; Encourage regular mammograms starting age 40; Followed with yearly pap smears (q3yrs); Needs to schedule mammogram [facility] [address], [place], [address], [facility] 11/20/2021 11:23:00 01/06/2023 text/html Annual GYNReport ed bypatient.History: no gynecologic complaints Menstrual cycle:Normal menses Urinary symptoms:No hematuria; No incontinence Vulva:No genital lesion Vagina:Normal vaginal discharge Breast:No breast pain; No breast lump; No nipple discharge Current Contraception:Sati sfied with current contraception; Partner had vasectomy Sexual complaints:No sexual complaints; No pain during intercourse; Normal libido Menopausal Symptoms:No menopausal symptoms; Normal vaginal lubrication Psychological symptoms:No depression; No anxiety; No PMDD Preventive measures:Encourage self breast examination; Encourage regular exercise; Encourage no tobacco use; Encourage regular mammograms starting age 40; Followed with yearly pap smears; Needs to schedule mammogram [facility] [address], [place], [address], [facility] 01/06/2023 13:43:30 01/30/2024 text/html Annual GYNReport ed bypatient.History: no gynecologic complaints Menstrual cycle:Normal menses Urinary symptoms:No hematuria; No incontinence Vulva:No genital lesion Vagina:Normal vaginal discharge Breast:No breast pain; No breast lump; No nipple discharge Current Contraception:Part ner had vasectomy Sexual complaints:No sexual complaints; No pain during intercourse; Normal libido Menopausal Symptoms:No menopausal symptoms; Normal vaginal lubrication Psychological symptoms:No depression; No anxiety; No PMDD Preventive measures:Encourage self breast examination; Encourage regular exercise; Encourage no tobacco use; Encourage regular mammograms starting age 40; Mammogram performed within the past year Patient presents for annual well woman exam. Patient reports increased fatigue, would like her vitamin D levels checked. LEENA MORRISON NP [address], [place], [address], [facility] 01/30/2024 11:28:37 OBGyn Episode Ob Episode Information Episode Created Date Number of Fetuses Patient Bloodtype Patient rh Status Prepregnancy Weight lbs Domestic Partner Domestic Partner Phone Father Name Clothespin Drier Operator Status 08/06/19 21 1 CLOSED Fetus Data First Name Last Name Admitted to NICU Weight (g) Sex Living Outcome Pediatric Complications Fetus ID Race Codes Race Delivery Type , Spontane ous [id number] Phani Calculation Initial Phani Date Initial Exam Date Initial Exam Provider Initial Ultrasound Date Last Menstrual Period Date Ultra Sound Weeks Gestation 0 Eighteen To Twenty Week Phani Update Ultra Sound Date Fundal Height At Umbil Quickening Date Ultra Sound Latest Weeks Gestation Final Phani Confirmed By Final Phani Confirmed Date Final Phani Date Ultra Sound Latest Days Gestation 0 0 Menstrual History Last Menstrual Date Menses Monthly On Bcp Conception Prior Menses Frequency Hcg Plus Date Menarche Onset Age Delivery Information Delivery Date Delivery Type Labor Anesthesia Weeks Gestation Incision Type Labor Labor Length Hrs Delivered By Post Complications Tubal Sterilization Discharge Date Comments 0 Discharge Information Feeding Method Contraceptive Method Maternal HG B and HCT Levels Ob Episode Information Episode Created Date Number of Fetuses Patient Bloodtype Patient rh Status Prepregnancy Weight lbs Domestic Partner Domestic Partner Phone Father Name Clothespin Drier Operator Status 08/06/19 21 1 CLOSED Fetus Data First Name Last Name Admitted to NICU Weight (g) Sex Living Outcome Pediatric Complications Fetus ID Race Codes Race Delivery Type 3430.06 2704 M Full Term [id number] Repeat Phani Calculation Initial Phani Date Initial Exam Date Initial Exam Provider Initial Ultrasound Date Last Menstrual Period Date Ultra Sound Weeks Gestation 0 Eighteen To Twenty Week Phani Update Ultra Sound Date Fundal Height At Umbil Quickening Date Ultra Sound Latest Weeks Gestation Final Phani Confirmed By Final Phani Confirmed Date Final Phani Date Ultra Sound Latest Days Gestation 0 0 Menstrual History Last Menstrual Date Menses Monthly On Bcp Conception Prior Menses Frequency Hcg Plus Date Menarche Onset Age Delivery Information Delivery Date Delivery Type Labor Anesthesia Weeks Gestation Incision Type Labor Labor Length Hrs Delivered By Post Complications Tubal Sterilization Discharge Date Comments 1 39.5 Discharge Information Feeding Method Contraceptive Method Maternal HG B and HCT Levels Ob Episode Information Episode Created Date Number of Fetuses Patient Bloodtype Patient rh Status Prepregnancy Weight lbs Domestic Partner Domestic Partner Phone Father Name Clothespin Drier Operator Status 08/06/19 21 1 CLOSED Fetus Data First Name Last Name Admitted to NICU Weight (g) Sex Living Outcome Pediatric Complications Fetus ID Race Codes Race Delivery Type 3458.63 9 M Full Term [id number] Repeat Phani Calculation Initial Phani Date Initial Exam Date Initial Exam Provider Initial Ultrasound Date Last Menstrual Period Date Ultra Sound Weeks Gestation 0 Eighteen To Twenty Week Phani Update Ultra Sound Date Fundal Height At Umbil Quickening Date Ultra Sound Latest Weeks Gestation Final Phani Confirmed By Final Phani Confirmed Date Final Phani Date Ultra Sound Latest Days Gestation 0 0 Menstrual History Last Menstrual Date Menses Monthly On Bcp Conception Prior Menses Frequency Hcg Plus Date Menarche Onset Age Delivery Information Delivery Date Delivery Type Labor Anesthesia Weeks Gestation Incision Type Labor Labor Length Hrs Delivered By Post Complications Tubal Sterilization Discharge Date Comments 4 39.4 Discharge Information Feeding Method Contraceptive Method Maternal HG B and HCT Levels Ob Episode Information Episode Created Date Number of Fetuses Patient Bloodtype Patient rh Status Prepregnancy Weight lbs Domestic Partner Domestic Partner Phone Father Name Clothespin Drier Operator Status 08/06/19 21 1 CLOSED Fetus Data First Name Last Name Admitted to NICU Weight (g) Sex Living Outcome Pediatric Complications Fetus ID Race Codes Race Delivery Type 3373.36 3704 M Full Term [id number] Primary Phani Calculation Initial Phani Date Initial Exam Date Initial Exam Provider Initial Ultrasound Date Last Menstrual Period Date Ultra Sound Weeks Gestation 0 Eighteen To Twenty Week Phani Update Ultra Sound Date Fundal Height At Umbil Quickening Date Ultra Sound Latest Weeks Gestation Final Phani Confirmed By Final Phani Confirmed Date Final Phani Date Ultra Sound Latest Days Gestation 0 0 Menstrual History Last Menstrual Date Menses Monthly On Bcp Conception Prior Menses Frequency Hcg Plus Date Menarche Onset Age Delivery Information Delivery Date Delivery Type Labor Anesthesia Weeks Gestation Incision Type Labor Labor Length Hrs Delivered By Post Complications Tubal Sterilization Discharge Date Comments 8 39 Discharge Information Feeding Method Contraceptive Method Maternal HG B and HCT Levels
[2024-07-16 13:15] VITALS: BP 110/77; PULSE 78; RESP 18; TEMP 36.6; O2SAT 100
[2024-07-16 13:21] LABS: BEDSIDEPREGUCG Negative (Negative)
--- NOTE | 2024-07-16 13:22 | P.PNAN_ITS ---
Anes - Initial Pre Proc Eval Procedure: Operation Date: 07/16/24 13:30 Proposed Procedures p Colonoscopy - Ochoa Sheehan MD Date/Time: 07/16/24 13:22 Surgeon: Ochoa Sheehan MD Pre Op Diagnosis: Diarrhea, unspecified, Change in bowel habit, Patient Data Age: 44 Gender: F Height: 1.57 m Weight: 44.3 kg Last Vital Signs Temp 98 F 07/16/24 13:15 Pulse 78 07/16/24 13:15 Resp 18 07/16/24 13:15 BP 110/77 07/16/24 13:15 Pulse Ox 100 07/16/24 13:15 O2 Del Method Room Air 07/16/24 13:15 Allergies Allergy/AdvReac Type Severity Reaction Status Date / Time ciprofloxacin AdvReac Intermediate tendon pain Verified 07/16/24 13:15 Home Medications ?Medication ?Instructions ?Recorded ?Confirmed ?Type ubrogepant 100 mg tablet (Ubrelvy) 100 mg PO ONCE #10 tabs 05/04/24 07/02/24 Rx cholecalciferol (vitamin D3) 50 50 mcg PO DAILY 07/02/24 07/02/24 History mcg (2,000 unit) capsule uqora 1 cap BYMOUTH DAILY 07/02/24 07/02/24 History vitamin B complex 2 tablet PO DAILY 07/02/24 07/02/24 History Laboratory Tests 07/16/24 13:19 POC Urine HCG, Qual Negative (Negative) Patient hx anesthesia problems: none Family hx anesthesia problems: none Results Review: All pre-operative results and documents have been reviewed as part of the pre- operative evaluation. [facility] Past Medical History Medical History Mass of skin of right shoulder Fibrous histiocytoma of skin Encounter for other specified surgical aftercare Migraines, neuralgic Family History Family History Other Cerebrovascular accident Family history of malignant neoplasm Social History Social History Smoking status: Never smoker Alcohol intake: current Drinks per week: 1 Substance use: never Substance use type: does not use Lack of Transportation: No Lack of Food: Never True Current Housing: I Have Housing Concerned About Future Housing: No Difficulty Paying Gas/Electric Bills: No Difficulty Paying for Meds: No Currently Unemployed: No Education: High School Diploma/GED Difficulty w/ Childcare or Family Care: No Living arrangements: with family Occupation/Education: occupation Gender identity (if verbalized by the patient): Female Sexual Orientation (if Verbalized by the Patient): Straight or Heterosexual Spiritual care concerns: No Anes - Eval Final PreProcedure Day of Procedure 07/16/24 13:22 Patient weight: normal and thin Lungs: normal air movement Airway: Mallampati scale class 1 Neurological: alert and oriented Last oral intake: >/= 8 hours ASA classification: I Emergent: no Anesthetic plan: proceed Anesthesia type and monitoring: general GIVS and standard monitoring Results Review: All pre-operative results and documents have been reviewed as part of the pre- operative evaluation. Pt w migranes by hx, exercises regularly, now w change in bowel habits. Informed Consent: The patient's anesthetic plan and its attendant risks and benefits were discussed with the patient/family/POA. Questions were solicited and answers provided to the satisfaction of the patient/family/POA.
[2024-07-16] MEDS: LACTATED RINGERS 1,000 ML 150 ML IV CONT (13:30)
--- NOTE | 2024-07-16 13:48 | PM.HPGS ---
History of Present Illness History of Present Illness Consent: Risks, benefits, and alternatives have been discussed and questions answered. Patient agrees to proceed with procedure. Chief complaint: Diarrhea, unspecified, Change in bowel habit, Narrative: Park Meier is a 44 year old female here for first colonoscopy, noted change bowel habits Review of Systems Review of Systems: All systems reviewed & are unremarkable except as noted in HPI and below PMFSH Past Medical History Medical History Mass of skin of right shoulder Fibrous histiocytoma of skin Encounter for other specified surgical aftercare Migraines, neuralgic Family History Family History Other Cerebrovascular accident Family history of malignant neoplasm Social History Social History Smoking status: Never smoker Alcohol intake: current Drinks per week: 1 Substance use: never Substance use type: does not use Lack of Transportation: No Lack of Food: Never True Current Housing: I Have Housing Concerned About Future Housing: No Difficulty Paying Gas/Electric Bills: No Difficulty Paying for Meds: No Currently Unemployed: No Education: High School Diploma/GED Difficulty w/ Childcare or Family Care: No Living arrangements: with family Occupation/Education: occupation Gender identity (if verbalized by the patient): Female Sexual Orientation (if Verbalized by the Patient): Straight or Heterosexual Spiritual care concerns: No Meds Home Medications and Allergies Home Medications ?Medication ?Instructions ?Recorded ?Confirmed ?Type ubrogepant 100 mg tablet (Ubrelvy) 100 mg PO ONCE #10 tabs 05/04/24 07/02/24 Rx cholecalciferol (vitamin D3) 50 50 mcg PO DAILY 07/02/24 07/02/24 History mcg (2,000 unit) capsule uqora 1 cap BYMOUTH DAILY 07/02/24 07/02/24 History vitamin B complex 2 tablet PO DAILY 07/02/24 07/02/24 History Allergies Allergy/AdvReac Type Severity Reaction Status Date / Time ciprofloxacin AdvReac Intermediate tendon pain Verified 07/16/24 13:15 Vital Signs Vital Signs - 24 hr 07/16/24 13:15 Temperature 98 F Pulse Rate 78 Respiratory Rate 18 Blood Pressure 110/77 Pulse Oximetry 100 Oxygen Delivery Room Air Exam Const: General: comfortable and no acute distress HENMT: Face/Nose/Sinus: Normal nares present Eyes: General: appearance normal, both eyes and all related structures Neck: Neck: no JVD Resp: Auscultation: clear to auscultation bilaterally Cardio: Rate: regular rate Rhythm: regular rhythm GI: Inspection: non-distended GI Palp: Yes Soft to palpation Skin: General skin exam: normal color Neuro: General: gait normal Speech: normal speech Extrem: General: normal to inspection Psych: Mental Status: mental status grossly normal Assessment and Plan Assessment and plan (1) Altered bowel habits: Code(s): R19.4 - Change in bowel habit Status: Acute Assessment and Plan: colonoscopy
[2024-07-16 13:59] VITALS: BP 90/57; PULSE 84; RESP 21; O2SAT 100
[2024-07-16 14:09] VITALS: BP 87/62; PULSE 77; RESP 20; O2SAT 100
[2024-07-16 14:19] VITALS: BP 99/58; PULSE 74; RESP 16; O2SAT 100
== END 2024-07-16 14:27 | disposition home or self-care (01) ==
PROVIDERS: Anesthesiology; PCP Physician Assistant Medical; Referring Provider Nurse Practitioner; Visit Provider Internal Medicine Gastroenterology
PROC: 0DJD8ZZ Inspection of Lower Intestinal Tract, Via Natural or Artificial Opening Endoscopic (ICD-10-PCS; CPT 45378; principal; 2024-07-16 13:30)
DX: K64.8 Other hemorrhoids (principal); Z80.9 Family history of malignant neoplasm, unspecified; Z82.49 Family history of ischemic heart disease and other diseases of the circulatory system
CPT/HCPCS: 45380; 88305; J2704; J7120

== ENCOUNTER 2024-07-19 11:19 | Outpatient (CLI) | payer BC, SELFPAY ==
--- NOTE | ~2024-07-19 | MM_ITS ---
EXAMINATION: MM screening yonny BI w arturo HISTORY: Screening TECHNIQUE: Craniocaudal and mediolateral oblique 3-D tomosynthesis images were obtained and synthetic 2-D images were generated. CAD analysis was submitted and interpreted. COMPARISON: Comparison to multiple prior studies sequentially, with oldest reviewed study dated 12/12. BREAST PARENCHYMAL COMPOSITION: Dense: The breasts are extremely dense, which lowers the sensitivity of mammography. FINDINGS: There is no evidence of suspicious mass, calcification, or architectural distortion to sugg est malignancy in either breast. There has been no suspicious interval change. IMPRESSION: 1. No mammographic evidence of malignancy. 2. Recommend routine screening mammography in one year. BI-RADS Category 1: Negative Reviewed, dictated and finalized at location A.
== END 2024-07-19 11:20 | disposition home or self-care (01) ==
LOC: MICIMG 11:19
PROVIDERS: PCP Physician Assistant Medical; Visit Provider Student in an Organized Health Care Education/Training Program
DX: Z12.31 Encounter for screening mammogram for malignant neoplasm of breast (principal)
CPT/HCPCS: 77063; 77067